=== PATIENT | male | born 1950 | race African-American/Black ===

== ENCOUNTER 2016-12-24 18:43 | Emergency (ER) | payer MEDICARE, BC ==
[~2016-12-24 18:43] MED LIST: AMLO5TAB2 PO; AMLO5TAB4 PO; ASPI-496 PO; Amlodipine Besylate PO; CITA10TA4 PO; CITA20TA5 PO; DONE5TAB30 PO; FOLI-17 PO; LACT10SO5 PO; LEVE500T53 PO; LISI5TAB7 PO; MAGN400T26 PO; METO-99 PO; PANT40TA5 PO; PROP60CA PO; TADA20TA PO; THIA100T6 PO
[2016-12-24] MEDS ORDERED: SODIUM CHLORIDE 0.9% 1,000 ML IV ONE (18:51)
[2016-12-24] MEDS ORDERED: PLEASE ENTER HEIGHT AND WEIGHT MC SCH (19:00)
[2016-12-24] MEDS ORDERED: SODIUM CHLORIDE 0.9% 1,000ML IVBOLUS ONE (19:00)
[2016-12-24] MEDS ORDERED: SODIUM CHLORIDE FLUSH 10ML SYR IVF ONE (19:00)
== END 2016-12-24 21:58 ==
LOC: ED 21:34
DX: Z53.21 Procedure and treatment not carried out due to patient leaving prior to being seen by health care provider (principal)
CPT/HCPCS: 93005; 99283

== ENCOUNTER 2016-12-24 18:47 | Emergency (ER) | payer MEDICARE, BC ==
[~2016-12-24] VITALS: Ht 193 cm; Wt 100.0 kg
[2016-12-24] MEDS ORDERED: SODIUM CHLORIDE 0.9% 1,000 ML IV ONE (18:53)
[2016-12-24 19:54] LABS: HEMOGLOBIN 12.2 g/dL (13.7-18.0)
[2016-12-24 19:58] LABS: ASPARTATE AMINO TRANSFERASE 34 U/L (15-37); BLOOD UREA NITROGEN 8 mg/dL (7-18)
[2016-12-24 20:05] LABS: IS PT STATUS REG ER OR PRE ER? YES
[2016-12-24 20:30] LABS: DAU SCREEN DISCLAIMER
[2016-12-24 20:38] LABS: DIFF TOTAL CELLS COUNTED 100 CELL DIFF
[2016-12-24 20:41] LABS: ANISOCYTOSIS 2+
[2016-12-24 20:42] LABS: HYPOCHROMIA 1+; OVALOCYTES 1+; TARGET CELLS 1+
[2016-12-24 20:43] LABS: LARGE PLATELETS 1+; ROULEAUX 1+
[2016-12-24 20:45] LABS: POIKILOCYTOSIS 1+; POLYCHROMASIA 1+
[2016-12-24 20:46] LABS: VERIFY COUNTS? YES
[2016-12-24 22:11] VITALS: BP 112/67
== END 2016-12-24 22:14 | disposition home or self-care (01) ==
LOC: ED 19:29
DX: F10.229 Alcohol dependence with intoxication, unspecified (principal); R55 Syncope and collapse; F10.121 Alcohol abuse with intoxication delirium; I10 Essential (primary) hypertension; E87.6 Hypokalemia; E83.42 Hypomagnesemia; Z90.49 Acquired absence of other specified parts of digestive tract
CPT/HCPCS: 36415; 70450; 71010; 80053; 80307; 81001; 82140; 83690; 83880; 84484; 85025; 85610; 85730; 93005

== ENCOUNTER 2018-06-22 18:37 | Observation (INO) | payer MEDICARE, BC ==
[~2018-06-22] VITALS: Ht 193 cm; Wt 90.7 kg
[~2018-06-22 18:37] MED LIST changes: -AMLO5TAB2 PO; +AMLO5TAB7 PO; -CITA20TA5 PO; +CITA20TA6 PO; -DONE5TAB30 PO; +DONE5TAB52 PO; -THIA100T6 PO; +THIA100T67 PO
[2018-06-22 19:36] LABS: BASOPHILS # (AUTO) 0.04 x10^3/uL (0-0.1); BASOPHILS % (AUTO) 1 % (0-1); EOSINOPHILS # (AUTO) 0.04 x10^3/uL (0-0.4); EOSINOPHILS % (AUTO) 1 % (1-7); LYMPHOCYTES # (AUTO) 2.78 x10^3/uL (1-3.4); LYMPHOCYTES % (AUTO) 35 % (22-44); MD NO; MEAN CORPUSCULAR HEMOGLOBIN 35.5 pg (27.5-34.5); MEAN CORPUSCULAR HGB CONC 34.5 g/dL (33.2-36.2); MEAN CORPUSCULAR VOLUME 102.7 fL (81-97); MEAN PLATELET VOLUME 10.1 fL (7.4-10.4); MONOCYTES # (AUTO) 1.02 x10^3/uL (0.2-0.8); MONOCYTES % (AUTO) 13 % (2-9); NEUTROPHILS % (AUTO) 51 % (42-75); PLATELET COUNT 132 x10^3/uL (130-400); RED CELL DISTRIBUTION WIDTH 15.6 % (9.4-14.8)
[2018-06-22 19:48] LABS: ALANINE AMINOTRANSFERASE 31 U/L (12-78); ALBUMIN 3.3 g/dL (3.4-5.0); ANION GAP 9 mmol/L (5-15); CALCIUM 8.5 mg/dL (8.5-10.1); CHLORIDE 113 mmol/L (98-107); CREATININE 1.04 mg/dL (0.7-1.3); SALICYLATE LEVEL 10.4 mg/dL (2.8-20.0)
[2018-06-22 19:50] LABS: ALKALINE PHOSPHATASE 81 U/L (45-117); BILIRUBIN,TOTAL 0.5 mg/dL (0.2-1.0); TOTAL PROTEIN 7.7 g/dL (6.4-8.2)
[2018-06-22 19:52] LABS: ACETAMINOPHEN < 2 mcg/mL (10-30)
[2018-06-22 20:38] LABS: MICROSCOPIC NOT IND
[2018-06-22 20:41] LABS: CULTURE INDICATED? NO
[2018-06-22] MEDS ORDERED: ONDANSETRON ODT 4 MG PO PRN (21:30)
[2018-06-22] MEDS ORDERED: ACETAMINOPHEN 325 MG TABLET PO PRN (21:30)
[2018-06-22] MEDS ORDERED: DONEPEZIL 5 MG TABLET PO SCH (21:30)
[2018-06-22] MEDS: LEVETIRACETAM 500 MG TABLET PO SCH (22:06)
[2018-06-22] MEDS: AMLODIPINE 5 MG TABLET PO SCH (22:06)
[2018-06-22] MEDS: SODIUM CHLORIDE FLUSH 10ML SYR IVF SCH (22:06)
[2018-06-22 22:39] LABS: FOLATE LEVEL 9.5 ng/mL (3.1-17.5)
[2018-06-22 23:04] VITALS: BP 161/96
[2018-06-22 23:12] VITALS: BP 161/96
[2018-06-23 02:45] VITALS: BP 118/68
[2018-06-23] MEDS ORDERED: METOPROLOL TARTRATE 100 MG TABLET PO SCH (06:00)
[2018-06-23 07:17] VITALS: BP 147/83
[2018-06-23] MEDS ORDERED: PANTOPROZOLE 40MG TABLET PO SCH (07:30)
[2018-06-23] MEDS: AMLODIPINE 5 MG TABLET PO SCH (07:48)
[2018-06-23] MEDS: LEVETIRACETAM 500 MG TABLET PO SCH (07:48)
[2018-06-23] MEDS: SODIUM CHLORIDE FLUSH 10ML SYR IVF SCH (07:48)
[2018-06-23] MEDS ORDERED: MAGNESIUM OXIDE 400 MG TABLET PO SCH (09:00)
[2018-06-23] MEDS ORDERED: LACTULOSE 10 GM/15 ML UDC PO SCH (09:00)
[2018-06-23] MEDS ORDERED: LISINOPRIL 5 MG TABLET PO SCH (09:00)
[2018-06-23] MEDS ORDERED: FOLIC ACID 1 MG TABLET PO SCH (09:00)
[2018-06-23] MEDS ORDERED: THIAMINE 100MG TABLET PO SCH (09:00)
[2018-06-23 14:29] VITALS: BP 123/75
== END 2018-06-23 18:30 | disposition home or self-care (01) ==
LOC: ED 20:33 → 4WST 20:34 → INTOOBSV 20:34 → 3NW 22:57
PROVIDERS: ADMIT Internal Medicine; ATTEND Internal Medicine
DX: F10.121 Alcohol abuse with intoxication delirium (principal); D75.89 Other specified diseases of blood and blood-forming organs; R00.0 Tachycardia, unspecified; E44.1 Mild protein-calorie malnutrition; F32.9 Major depressive disorder, single episode, unspecified; G25.0 Essential tremor; F41.1 Generalized anxiety disorder; I11.0 Hypertensive heart disease with heart failure; I50.22 Chronic systolic (congestive) heart failure; I45.10 Unspecified right bundle-branch block; R62.7 Adult failure to thrive; F03.90 Unspecified dementia, unspecified severity, without behavioral disturbance, psychotic disturbance, mood disturbance, and anxiety; F17.210 Nicotine dependence, cigarettes, uncomplicated; Z82.49 Family history of ischemic heart disease and other diseases of the circulatory system; Z88.8 Allergy status to other drugs, medicaments and biological substances; Z79.899 Other long term (current) drug therapy
CPT/HCPCS: 36415; 80053; 80307; 80329; 81003; 82607; 82746; 82962; 85025; 93005; 99285; G0378; G0480

== ENCOUNTER → 2018-07-31 | Outpatient (CLI) | payer MEDICARE, BC ==
[2018-07-31 12:48] LABS: ALBUMIN 3.8 g/dL (3.4-5.0); ANION GAP 7 mmol/L (5-15); CHLORIDE 109 mmol/L (98-107); CHOLESTEROL, TOTAL 138 mg/dL (140-239)
[2018-07-31 12:59] LABS: ALANINE AMINOTRANSFERASE 28 U/L (12-78); ALKALINE PHOSPHATASE 88 U/L (45-117); BILIRUBIN,TOTAL 0.5 mg/dL (0.2-1.0); HDL CHOL % 51 % (26-37); HDL CHOLESTEROL (DIRECT) 70 mg/dL (40-60); LDL CHOLESTEROL,CALCULATED 43 mg/dL (54-169); LDL/HDL RATIO 0.6 (0.5-3.0); TOTAL PROTEIN 8.8 g/dL (6.4-8.2); TRIGLYCERIDES 123 mg/dL (50-200); VLDL CHOLESTEROL 25 mg/dL (0-25)
== END | disposition home or self-care (01) ==
LOC: CFH 10:46
PROVIDERS: ATTEND Family Medicine
DX: I10 Essential (primary) hypertension (principal); F10.10 Alcohol abuse, uncomplicated
CPT/HCPCS: 36415; 80053; 80061; 84402; 84403; 84443

== ENCOUNTER 2019-09-03 11:42 | Emergency (ER) | payer MEDICARE, BC ==
[~2019-09-03] VITALS: Ht 193 cm; Wt 102.5 kg
[~2019-09-03 11:42] MED LIST changes: +AMLO-150 PO; -AMLO5TAB7 PO; +LACT10SO24 PO; -LACT10SO5 PO
--- NOTE | 2019-09-03 11:55 | NUR ---
VOIDED URINE SPECIMEN PROVIDED.
--- NOTE | 2019-09-03 12:13 | NUR ---
DR ELAM BS FOR EXAM
--- NOTE | 2019-09-03 12:13 | NUR ---
SISTER: LISE PICKARD TEL: [phone]
[2019-09-03] MEDS ORDERED: THIAMINE 100MG TABLET PO ONE (12:30)
[2019-09-03 12:42] LABS: MEAN CORPUSCULAR HEMOGLOBIN 36.7 pg (27.5-34.5); MEAN CORPUSCULAR HGB CONC 32.8 g/dL (33.2-36.2); MEAN CORPUSCULAR VOLUME 111.9 fL (81-97); MEAN PLATELET VOLUME 9.3 fL (7.4-10.4); PLATELET COUNT 204 x10^3/uL (130-400); RED BLOOD COUNT 4.07 x10^6/uL (4.38-5.82); RED CELL DISTRIBUTION WIDTH 15.6 % (9.4-14.8)
[2019-09-03 12:57] LABS: ALANINE AMINOTRANSFERASE 31 U/L (12-78); ALBUMIN 2.5 g/dL (3.4-5.0); ANION GAP 9 mmol/L (5-15); CALCIUM 8.5 mg/dL (8.5-10.1); CHLORIDE 111 mmol/L (98-107); CREATININE 0.75 mg/dL (0.7-1.3); SALICYLATE LEVEL 2.6 mg/dL (2.8-20.0)
--- NOTE | 2019-09-03 13:06 | NUR ---
LUNCH TRAY ORDERED
[2019-09-03 13:07] LABS: ALKALINE PHOSPHATASE 81 U/L (45-117); BILIRUBIN,TOTAL 0.5 mg/dL (0.2-1.0); TOTAL PROTEIN 7.6 g/dL (6.4-8.2)
[2019-09-03 13:10] LABS: AMPHETAMINE SCREEN, URINE Negative (Negative); BARBITURATE SCREEN, URINE Negative (Negative); BENZODIAZEPINE SCREEN, URINE Negative (Negative); COCAINE SCREEN, URINE Negative (Negative); METHADONE SCREEN, URINE Negative (Negative); OPIATE SCREEN, URINE Negative (Negative)
[2019-09-03 13:12] LABS: CANNABINOID SCREEN, URINE Negative (Negative)
[2019-09-03 13:41] LABS: BASOPHILS # (AUTO) 0.18 x10^3/uL (0-0.1); BASOPHILS % (AUTO) 3 % (0-1); EOSINOPHILS # (AUTO) 0.05 x10^3/uL (0-0.4); EOSINOPHILS % (AUTO) 1 % (1-7); LYMPHOCYTES # (AUTO) 1.97 x10^3/uL (1-3.4); LYMPHOCYTES % (AUTO) 35 % (22-44); MD SCAN; MONOCYTES # (AUTO) 0.57 x10^3/uL (0.2-0.8); MONOCYTES % (AUTO) 10 % (2-9); NEUTROPHILS # (AUTO) 2.82 x10^3/uL (1.8-6.8); NEUTROPHILS % (AUTO) 50 % (42-75)
--- NOTE | 2019-09-03 13:48 | NUR ---
PT WANDERING IN [place], UPSET ABOUT NOT RECEIVING LUNCH TRAY YET. ACCOMPANIED PT TO HIS ROOM, WILL CALL DIETARY FOR UPDATE.
--- NOTE | 2019-09-03 13:51 | NUR ---
CALLED DIETARY RE: LUNCH TRAY. TRAY TO BE DELIVERED SOON.
--- NOTE | 2019-09-03 13:58 | NUR ---
PT IN [place] YELLING ABOUT NEIGHBORING PATIENT CALLING HIM "A NIGGER". PT VERY UPSET, SECURITY TO ROOM, SITUATION DE-ESCALATED, PT ACCOMPANIED BY TO HIS ROOM, INFORMED PT LUNCH TRAY WAS RE-ORDERED.
--- NOTE | 2019-09-03 14:06 | NUR ---
PT IN ED ROOM, LUNCH TRAY DELIVERED.
--- NOTE | 2019-09-03 15:00 | NUR ---
PT'S NEIGHBOR/BEST FRIEND AT ROOM: RON DENT SR ( 09/27/1952) CELL [phone].
--- NOTE | 2019-09-03 15:18 | NUR ---
[facility] SHEILA WRIGHT
--- NOTE | 2019-09-03 15:41 | NUR ---
SITTER FOR MEDICAL HOLD INITIATED. PT STANDING IN ROOM DOORWAY, REQUESTING TO LEAVE. INFORMED PT THAT HE NEEDS TO STAY UNTIL CLEARED BY PHYSICIAN. ETOH ODER STILL ON PT'S BREATH. PT BEING COOPERATIVE
--- NOTE | 2019-09-03 15:48 | NUR ---
WATER & CARMELO CRACKERS PROVIDED TO PT. PT SITTING QUIETLY ON BED.
[2019-09-03] MEDS ORDERED: THIAMINE 100MG TABLET ONE (15:53)
--- NOTE | 2019-09-03 17:14 | NUR ---
DINNER TRAY ORDERED. PT RESTING QUIETLY ON RRANDLE. SITTER OUTSIDE ROOM.
--- NOTE | 2019-09-03 17:30 | NUR ---
DINNER TRAY DELIVERED
--- NOTE | 2019-09-03 17:32 | NUR ---
career information specialist note: Pt agreeable to breathalyzer at this time. Still above legal limit of alcohol. Pt provided dinner tray with SI precautions observed. Pt thankful, denies other needs.
--- NOTE | 2019-09-03 17:40 | NUR ---
OSCAR RN AT BS
[2019-09-03 17:41] VITALS: BP 147/98
--- NOTE | 2019-09-03 17:49 | NUR ---
PT REPORT TO BREAK RN: GEETA Kiran RN. PT CARE TRANSFERRED.
--- NOTE | 2019-09-03 18:12 | NUR ---
BREAK RN: PATIENT RESTING IN BED, RESPIRATIONS EVEN AND UNLABORED. SITTER AT DOOR.
--- NOTE | 2019-09-03 18:31 | NUR ---
PT REPORT FROM GEETA Kiran RN. PT CARE RESUMED. PT RESTING QUIETLY ON BED W/ SIDE RAILS UP X2, CALL LIGHT W/IN REACH. Addendum: 09/03/19 at 1832 by ANTWON SITTER OUTSIDE ROOM.
--- NOTE | 2019-09-03 19:25 | NUR ---
BREATHALYZER REPEATED (0.141). INFORMED PT OF NEEDED LEVEL (0.08); INFORMED HIM BREATHALYZER WILL BE REPEATED IN ABOUT AN HOUR. PT VERBALIZED UNDERSTANDING.
--- NOTE | 2019-09-03 20:06 | NUR ---
pt given dc instructions, pt getting dressed, emt at bs to help with dc.
== END 2019-09-03 20:08 | disposition home or self-care (01) ==
LOC: ED 15:07
DX: F10.120 Alcohol abuse with intoxication, uncomplicated (principal); I10 Essential (primary) hypertension; E11.65 Type 2 diabetes mellitus with hyperglycemia; Y90.8 Blood alcohol level of 240 mg/100 ml or more
CPT/HCPCS: 36415; 80053; 80307; 84443; 85025; 93005; 99284

== ENCOUNTER 2019-09-23 11:55 | Emergency (ER) | payer MEDICARE, BC ==
[~2019-09-23] VITALS: Ht 193 cm; Wt 101.0 kg
--- NOTE | 2019-09-23 12:28 | NUR ---
Pt to room in company of security shouting "im citizen of [place], I have nothing to give you, nothing im poor". Pt asked what his medical complaint is? "I dont need nothing, I have nothing for you!". Pt not answering orientation questions. Pt asked to go into [facility], pt slowy moving into [facility]. operational risk consultant aware of pts behavior per EMT Omar.
--- NOTE | 2019-09-23 12:50 | NUR ---
Pts brother requesting security. Pts brother is concerned with brothers etoh consumption. Pt reports that he is fine and wants to go home. Etoh smell is coming off patient when he speaks. Pts family member to lobby to help descalate situation. Med Student informed of this, would like to examine pt first prior to getting MD Mitchell.
--- NOTE | 2019-09-23 13:04 | NUR ---
HATCHERY LABORER: Patient moved to camera room for safety, Dr. Smith at bedside evaluating patient.
--- NOTE | 2019-09-23 13:05 | NUR ---
TASK RN: FIRST CONTACT WITH PT. Pt moved to room 39. Pt shouting, "I want to go home." Pt impulsive. ED RNs at bedside. Pt performing breathalyzer at this time.
--- NOTE | 2019-09-23 13:12 | NUR ---
Pt bedside report given to Xuan CHAUHAN. Nickolas ochoa RN at bedside and to request public safety director for pt.
--- NOTE | 2019-09-23 13:21 | NUR ---
power house engineer: sitter at bedside for patient safety.
[2019-09-23] MEDS ORDERED: SODIUM CHLORIDE FLUSH 10ML SYR IVF ONE (13:30)
[2019-09-23] MEDS ORDERED: MAGNESIUM SULFATE 1 GM, THIAMINE 100 MG, FOLIC ACID 1 MG, MVI ADULT 10 ML in SODIUM CHL... IV ONE (13:30)
--- NOTE | 2019-09-23 14:01 | NUR ---
MEDICATION ORDERED FROM PHARMACY.
[2019-09-23 14:11] VITALS: BP 164/96
[2019-09-23 14:11] LABS: MEAN CORPUSCULAR HEMOGLOBIN 37.3 pg (27.5-34.5); MEAN CORPUSCULAR HGB CONC 33.9 g/dL (33.2-36.2); MEAN CORPUSCULAR VOLUME 110.2 fL (81-97); MEAN PLATELET VOLUME 10.6 fL (7.4-10.4); PLATELET COUNT 115 x10^3/uL (130-400); RED BLOOD COUNT 4.07 x10^6/uL (4.38-5.82); RED CELL DISTRIBUTION WIDTH 15.4 % (9.4-14.8)
[2019-09-23 14:20] LABS: ALANINE AMINOTRANSFERASE 137 U/L (12-78); ALBUMIN 2.8 g/dL (3.4-5.0); ANION GAP 18 mmol/L (5-15); CALCIUM 8.4 mg/dL (8.5-10.1); CHLORIDE 103 mmol/L (98-107); CREATININE 0.86 mg/dL (0.7-1.3)
--- NOTE | 2019-09-23 14:22 | NUR ---
TASK RN: REPORT FROM TIEN SHERIDAN. PT TO ROOM TO VIA DEE. PT AWAKE, YELLING TO STAFF TO "TAKE HIM TO THE STORE FOR CIGARETTES". PT W CLEAR SPEECH, FACE SYMMETRICAL. UNABLE TO RECALL ADDRESS. PT FOLLOWS COMMANDS. SITTER PRESENT PT IS REQUIRING CONSTANT REDIRECTION. BP/SPO2 MONITORING IN PLACE. IVF INITIATED PER EMAR.
[2019-09-23 14:23] LABS: ALKALINE PHOSPHATASE 137 U/L (45-117); BILIRUBIN,TOTAL 2.3 mg/dL (0.2-1.0); TOTAL PROTEIN 8.4 g/dL (6.4-8.2)
[2019-09-23 14:28] LABS: BASOPHILS # (AUTO) 0.03 x10^3/uL (0-0.1); BASOPHILS % (AUTO) 1 % (0-1); EOSINOPHILS # (AUTO) 0.05 x10^3/uL (0-0.4); EOSINOPHILS % (AUTO) 1 % (1-7); LYMPHOCYTES # (AUTO) 2.41 x10^3/uL (1-3.4); LYMPHOCYTES % (AUTO) 38 % (22-44); MONOCYTES # (AUTO) 0.38 x10^3/uL (0.2-0.8); MONOCYTES % (AUTO) 6 % (2-9); NEUTROPHILS # (AUTO) 3.42 x10^3/uL (1.8-6.8); NEUTROPHILS % (AUTO) 54 % (42-75)
[2019-09-23 14:29] LABS: MD SCAN
[2019-09-23] MEDS ORDERED: LORazepam 2 MG/ML, 1ML IVPush PRN (14:30)
--- NOTE | 2019-09-23 14:30 | NUR ---
TASK RN: REPORT TO TIEN RESENDIZ. AWARE OF POC
[2019-09-23] MEDS ORDERED: LORazepam 2 MG/ML, 1ML ONE (14:35)
--- NOTE | 2019-09-23 16:15 | NUR ---
PT REMAIN ANXIOUS HOWEVER COOPERATIVE WITH THE SITTER
== END 2019-09-23 16:47 | disposition home or self-care (01) ==
LOC: ED 14:03
DX: F10.220 Alcohol dependence with intoxication, uncomplicated (principal); I10 Essential (primary) hypertension; E11.9 Type 2 diabetes mellitus without complications
CPT/HCPCS: 36415; 80053; 83690; 85025; 96365; 96366; 96375; 99283; J2060; J3411; J3475; J7030